=== PATIENT | female | born 1950 | race Caucasian/White ===

== ENCOUNTER 2017-11-03 12:58 | Emergency (ER) | payer MEDICARE ==
--- NOTE | 2017-11-03 14:01 | RAD ---
PA AND LATERAL CHEST RADIOGRAPH: Date: 11-03-17 History: Flu-like symptoms for two days. Cough. Comparison: 08-08-16 FINDINGS: Cardiac silhouette and pulmonary vasculature are within normal limits. There are stable pleural and p arenchymal scarring at the right lung apex and to a lesser degree at the left lung apex. Lungs are ot herwise clear. No focal consolidation or pleural fluid is seen. No other interval change from prior e xam. IMPRESSION: Stable chest without evidence of acute cardiopulmonary process. POS: [facility]
[2017-11-03] MEDS ORDERED: methylPREDNISolone Sod Succ/PF 125 MG/2 ML VIAL ONE (14:08)
[2017-11-03 14:32] LABS: #Basophils 0.1 thou/uL (0.0-0.2); #Eosinphils 0.4 thou/uL (0.0-0.7); #Lymphocytes 1.1 thou/uL (1.20-3.40); #Monocytes 0.8 thou/uL (0.11-0.59); #Neutrophils 8.6 thou/uL (1.40-6.50); %Basophils 0.6 % (0.0-1.0); %Lymphocytes 9.7 % (21.0-51.0); %Monocytes 7.6 % (0.0-10.0); %Neutrophils 78.1 % (42.0-75.0); Hemoglobin 15.7 g/dL (12.0-16.0); Mean Corpuscular HGB CONC 33.4 g/dL (32.0-36.0); Mean Corpuscular Hemoglobin 36.2 pg (27.0-31.0); Mean Platelet Volume 6.8 fL (7.4-10.4); Platelet Count 207 thou/uL (130-400); RBC Distribution Width 12.3 % (11.5-14.5); Red Blood Cell (RBC) Count 4.32 mill/uL (4.20-5.40)
[2017-11-03 14:53] LABS: ALT (SGPT) 17 U/L (8-55); AST (SGOT) 18 U/L (5-34); Albumin 4.1 g/dL (3.4-4.8); Alkaline Phosphatase 89 U/L (40-150); Anion Gap 12 mmol/L (10-20); BUN (Urea Nitrogen) 17 mg/dL (9.8-20.1); Bilirubin, Total 1.2 mg/dL (0.2-1.2); CK (CPK) 104 U/L (29-168); Calc. Creatinine Clearance 0 mL/min (70-130); Calcium 8.9 mg/dL (7.8-10.44); Carbon Dioxide 22 mmol/L (23-31); Chloride 104 mmol/L (98-107); Estimated GFR-MDRD 60; Globulin 3.2 g/dL (2.4-3.5); Glucose 114 mg/dL (80-115); Potassium 4.2 mmol/L (3.5-5.1); Protein, Total 7.3 g/dL (6.0-8.3); Sodium 134 mmol/L (136-145)
[2017-11-03 15:14] LABS: CKMB 1.4 ng/mL (0-6.6); Troponin I Less than 0.010 ng/mL (< 0.028)
--- NOTE | 2017-11-30 15:56 | EKG ---
Test Reason : Blood Pressure : / mmHG Vent. Rate : 088 BPM Atrial Rate : 088 BPM P-R Int : 180 ms QRS Dur : 082 ms QT Int : 396 ms P-R-T Axes : 002 -32 043 degrees QTc Int : 479 ms Normal sinus rhythm Left axis deviation Possible Inferior infarct , age undetermined Abnormal ECG Confirmed by MADHU MOLINA, BAMBI ([id number]), newspaper or periodical editor LANNY HENLEY ([id number] on 11/30/2017 3:56:05 PM Referred By: MYRNA Confirmed By:BAMBI LEUNG MD
== END 2017-11-03 16:42 | disposition home or self-care (01) ==
LOC: ERS 12:58
DX: J44.1 Chronic obstructive pulmonary disease with (acute) exacerbation (principal); J20.9 Acute bronchitis, unspecified; J44.0 Chronic obstructive pulmonary disease with (acute) lower respiratory infection; M81.0 Age-related osteoporosis without current pathological fracture; E78.5 Hyperlipidemia, unspecified; F32.9 Major depressive disorder, single episode, unspecified; Z79.82 Long term (current) use of aspirin; Z79.899 Other long term (current) drug therapy
CPT/HCPCS: 36415; 71046; 80053; 82550; 82553; 83605; 83880; 84484; 85025; 87040; 87804; 93005; 94640; 96374; J2930; J7620

== ENCOUNTER 2018-02-02 17:15 | Inpatient (IN) | payer MEDICARE ==
[2018-02-02] MEDS ORDERED: predniSONE 20 MG TAB ONE ×2 (18:13→18:16)
[2018-02-02 18:21] LABS: Hemoglobin 16.3 g/dL (12.0-16.0); Mean Corpuscular HGB CONC 33.3 g/dL (32.0-36.0); Mean Corpuscular Hemoglobin 36.3 pg (27.0-31.0); Mean Platelet Volume 6.7 fL (7.4-10.4); Platelet Count 291 thou/uL (130-400); RBC Distribution Width 13.2 % (11.5-14.5); Red Blood Cell (RBC) Count 4.49 mill/uL (4.20-5.40); White Blood Cell (WBC) Count 12.4 thou/uL (4.8-10.8)
--- NOTE | 2018-02-02 18:23 | RAD ---
AP VIEW CHEST: Date: 02/02/18 INDICATION: Cough and congestion. COMPARISON: Prior exam dated 04/03/12 and 11/03/17. FINDINGS: Mild cardiomegaly and chronic lung changes are stable. Again seen is an azygos lobe. No pleural effus ion or pneumothorax noted. No acute osseous abnormality is noted. IMPRESSION: No acute change demonstrated when compared to the prior dated 11/03/17. No air space consolidation ev ident. POS: [facility]
[2018-02-02 18:31] LABS: Bilirubin Negative (Negative); Blood, Urine Trace (Negative); Clarity CLEAR (Clear); Glucose, Urine (Dipstick) Negative (Negative); Leukocyte Negative (Negative); Nitrite Negative (Negative); Protein, Urine (Dipstick) Negative (Neg-Trace); Specific Gravity, Urine 1.018 (1.002-1.036); pH, Urine 5.5 (5.0-9.0)
[2018-02-02 18:34] LABS: Bacteria/HPF None Seen HPF (None Seen); Hyaline Casts/LPF 0-3 HYALINE CAST LPF (0-3 Hyaline); RBC/HPF 0-3 HPF (0-3); Squamous Epithelial None Seen HPF (0-3); WBC/HPF 0-3 HPF (0-3)
[2018-02-02 18:38] LABS: #Basophils 0.1 thou/uL (0.0-0.2); #Eosinphils 0.9 thou/uL (0.0-0.7); #Lymphocytes 4.4 thou/uL (1.20-3.40); #Monocytes 1.1 thou/uL (0.11-0.59); #Neutrophils 5.9 thou/uL (1.40-6.50); %Basophils 0.8 % (0.0-1.0); %Eosinophils 7.2 % (0.0-10.0); %Lymphocytes 35.8 % (21.0-51.0); %Monocytes 8.8 % (0.0-10.0); %Neutrophils 47.4 % (42.0-75.0); MDiff Complete? YES; Macrocytosis SLIGHT = 6-15 cells (100X) (0-5/hpf); PLT Morphology Comment Appears Adequate
[2018-02-02 18:47] LABS: ALT (SGPT) 23 U/L (8-55); AST (SGOT) 19 U/L (5-34); Alkaline Phosphatase 97 U/L (40-150); Anion Gap 11 mmol/L (10-20); BUN (Urea Nitrogen) 16 mg/dL (9.8-20.1); Bilirubin, Total 0.9 mg/dL (0.2-1.2); Calc. Creatinine Clearance 0 mL/min (70-130); Calcium 9.2 mg/dL (7.8-10.44); Carbon Dioxide 24 mmol/L (23-31); Chloride 106 mmol/L (98-107); Estimated GFR-MDRD 62; Globulin 3.6 g/dL (2.4-3.5); Glucose 87 mg/dL (80-115); Potassium 4.2 mmol/L (3.5-5.1); Protein, Total 7.6 g/dL (6.0-8.3); Sodium 137 mmol/L (136-145)
[2018-02-02 18:50] LABS: CKMB 2.4 ng/mL (0-6.6); Troponin I Less than 0.010 ng/mL (< 0.028)
[2018-02-02] MEDS ORDERED: cefTRIAXone\\ROCEPHIN 2 GM VIAL ONE (19:37)
[2018-02-02] MEDS ORDERED: hydrALAZINE 20 MG/ML VIAL SLOW IVP PRN (22:04)
[2018-02-02] MEDS ORDERED: Ondansetron HCl/PF 4 MG/2 ML Vial IVP PRN ×2 (22:04)
[2018-02-02] MEDS ORDERED: Nitroglycerin 0.4 MG TAB (25 Tab Bottle) SL PRN (22:04)
[2018-02-02] MEDS ORDERED: Calcium Carbonate 500 MG ChewTAB PO PRN (22:04)
[2018-02-02] MEDS ORDERED: Acetaminophen 325 MG TAB PO PRN (22:04)
[2018-02-02] MEDS ORDERED: Bisacodyl 5 MG TAB PO PRN ×2 (22:04)
[2018-02-02] MEDS ORDERED: HYDROcodone/Acetaminophen 5/325 mg Tablet PO PRN (22:04)
[2018-02-02] MEDS ORDERED: Benzonatate 100 MG CAP PO PRN (22:04)
[2018-02-02] MEDS ORDERED: Loratadine 10 MG TAB PO PRN (22:04)
[2018-02-02] MEDS ORDERED: traMADol HCl 50 MG TAB PO PRN (22:04)
[2018-02-02] MEDS ORDERED: Mag-Al 1200 mg/1200 mg/30 ML UDCUP PO PRN (22:04)
[2018-02-02] MEDS ORDERED: Senokot 8.6 MG TAB PO PRN ×2 (22:04)
[2018-02-02] MEDS ORDERED: Diabetic Tussin 200 MG/10 ML UDCUP PO PRN (22:04)
[2018-02-02] MEDS ORDERED: Lorazepam 1 MG TAB PO PRN (22:04)
[2018-02-02] MEDS ORDERED: cloNIDine 0.1 MG TAB PO PRN (22:04)
[2018-02-03] MEDS ORDERED: cefTRIAXone\\ROCEPHIN 1 GM in Sodium Chloride 0.9% 100 ML IVPB SCH (00:01)
[2018-02-03] MEDS ORDERED: cefTRIAXone\\ROCEPHIN 1 GM in Syringe 10 ML IVPB SCH (00:30)
--- NOTE | 2018-02-03 02:40 | HP ---
DATE OF ADMISSION: 02/02/2018 The patient was seen prior to midnight. PRIMARY CARE PHYSICIAN: Dr. Urrutia. PRIMARY FRONT END TECHNICIAN: Dr. Sabrina Rice. CHIEF COMPLAINT: Worsening shortness of breath. HISTORY OF PRESENTING ILLNESS: Ms. Grey is a pleasant 67-year-old female with past medical histor y of both asthma and COPD as per herself and history of atrial fibrillation, dyslipidemia, who presen eladio to the emergency room with the above-mentioned complaint. History is mainly obtained by the trinity ent herself and electronic medical records have been reviewed. Ms. Grey reports that she started to have symptoms of yellow productive cough and congestion for t he last couple of weeks. She has been using her inhalers without any benefit. She denies any nausea , vomiting, diarrhea, chills, or hemoptysis. She currently is not using any oxygen at home. She did also report generalized weakness and subjective fevers and has hurt herself wheezing. She presented to the ER with these symptoms and her oxygen saturation upon presentation was 90% on room air and ot herwise she was hemodynamically stable. She was found to have diffuse wheezes bilaterally on examina tion. Twelve-lead EKG showed sinus rhythm without any acute changes and chest x-ray does not show an y infiltrate or vascular congestion. She was diagnosed with COPD exacerbation and was given nebulize r, prednisone as well as Rocephin in the emergency room and has been feeling better since then. Her oxygen saturations have improved from 85% on 2 liters nasal cannula to 92% on 4 liters nasal cannula after treatment. She is now being admitted to the hospital for COPD exacerbation and hypoxic respira tory failure. PAST MEDICAL HISTORY: 1. GERD. 2. Degenerative joint disease. 3. Asthma. 4. Chronic obstructive pulmonary disease. PAST SURGICAL HISTORY: Tubal ligation. ALLERGIES: No known medication allergies. PSYCHIATRIC: Anxiety and depression. FAMILY HISTORY: Father from lung cancer. He was a smoker. Mother from diabetes. Patient 's sister had coronary artery disease with stent, hypertension, heart disease, and diabetes runs in s everal family members. SOCIAL HISTORY: She has no history of drug, tobacco, or alcohol abuse. Lives at home with her famil y. CURRENT HOME MEDICATIONS: Sertraline 100 mg daily, ranitidine 150 mg p.o. b.i.d., mirtazapine 15 mg daily at bedtime, metoprolol tartrate 25 mg p.o. b.i.d., Synthroid 50 mcg daily, Neurontin 600 mg p.o . t.i.d., Tambocor 50 mg p.o. b.i.d., atorvastatin 20 mg daily, and amitriptyline 50 mg daily. REVIEW OF SYSTEMS: A 12-point review of systems is done and is negative except for those mentioned i n the history and physical: Constitutional: Weight loss or gain, ability to conduct usual activitie s. Skin: Rash, itching. Eyes: Double vision, pain. ENT/Mouth: Nose bleeding, neck stiffness, pa in, tenderness. Cardiovascular: Palpitations, dyspnea on exertion, orthopnea. Respiratory: Shortn ess of breath, wheezing, cough, hemoptysis, fever, or night sweats. Gastrointestinal: Poor appetite , abdominal pain, heartburn, nausea, vomiting, constipation, or diarrhea. Genitourinary: Urgency, f requency, dysuria, nocturia. Musculoskeletal: Pain, swelling. Neurologic/Psychiatric: Anxiety, de pression. Allergy/Immunologic: Skin rash, bleeding tendency. LABORATORY EXAMINATION: CBC shows WBCs at 12.4 without any left shift, hemoglobin 16.3, platelet of 291. Serum chemistries unremarkable. Cardiac enzymes within normal limits. Urinalysis shows trace blood, otherwise unremarkable. Chest x-ray by my review has no evidence to suggest pleural effusion, edema, or infiltrate. A 12-lead EKG shows normal sinus rhythm without acute changes by my review. PHYSICAL EXAMINATION: VITAL SIGNS: Most recent vital signs temperature 98.6, pulse of 87, respirations 18, saturating 93% on 3 liters nasal cannula, blood pressure 126/71. GENERAL: She appears somewhat uncomfortable and appears pale and sick. Awake, alert, oriented x3. HEENT: Mucous membrane is moist and pink. No oropharyngeal exudate or erythema. Head is normocepha lic, atraumatic. Pupils are equal, reactive to light and accommodation. Extraocular movement intact . NECK: Supple without any lymphadenopathy, JVD, or bruit. CHEST: She has diffused bilateral expiratory wheezes on examination without any significant crackles . Air entry is equal on both sides. HEART: Rate and rhythm is regular without any murmur, rubs, or gallops. ABDOMEN: Soft, nontender, nondistended with positive bowel sounds. EXTREMITIES: Free of any cyanosis, clubbing, or edema. NEUROLOGIC: Nonfocal. SKIN: Free of any rashes or bruises. I feel warm and dry to touch. PSYCHIATRIC: Normal affect. IMPRESSION AND PLAN: 1. Acute hypoxic respiratory failure. This is secondary to acute chronic obstructive pulmonary dise ase exacerbation. She will be continued supplemental oxygen and we will start her on scheduled p.r.n . nebulizers along with empiric IV antibiotics and oral steroids. Likelihood of other causes like ca rdiac event is very less likely. Cardiac enzymes and EKG are unremarkable at this time. We will als o start her on Mucinex b.i.d. as well as long-acting inhaled steroids in the form of Dulera. Continu e with oral steroids at this time as started in the emergency room. Empiric antibiotic for possible bronchitis have also been started in the ER, which we will continue. 2. History of atrial fibrillation. She follows up with Dr. Rice as an outpatient clinic and is curr ently in sinus rhythm. We will continue with her flecainide for now. 3. Hypertension, currently well controlled. We will restart her metoprolol tartrate for now. 4. Dyslipidemia. Restart atorvastatin. 5. Hypothyroidism. We will restart her Synthroid 50 mcg daily. 6. Deep venous thrombosis and gastrointestinal prophylaxis. 7. Add p.r.n. medications. DISPOSITION: Ms. Grey was currently being admitted for acute hypoxic respiratory failure secondar y to acute chronic obstructive pulmonary disease exacerbation. Estimated length of stay is at least 2-3 midnight. Further management will depend upon her clinical course.
[2018-02-03] MEDS: Levothyroxine Sodium 50 MCG TAB PO SCH (05:25)
[2018-02-03 05:33] LABS: #Lymphocytes 1.2 thou/uL (1.20-3.40); #Monocytes 0.1 thou/uL (0.11-0.59); #Neutrophils 8.8 thou/uL (1.40-6.50); %Basophils 0.1 % (0.0-1.0); %Eosinophils 0.1 % (0.0-10.0); %Lymphocytes 11.9 % (21.0-51.0); %Monocytes 1.3 % (0.0-10.0); %Neutrophils 86.6 % (42.0-75.0); Hemoglobin 15.1 g/dL (12.0-16.0); Mean Corpuscular HGB CONC 33.4 g/dL (32.0-36.0); Mean Corpuscular Hemoglobin 36.7 pg (27.0-31.0); Mean Platelet Volume 6.7 fL (7.4-10.4); Platelet Count 262 thou/uL (130-400); RBC Distribution Width 13.1 % (11.5-14.5); Red Blood Cell (RBC) Count 4.11 mill/uL (4.20-5.40); White Blood Cell (WBC) Count 10.2 thou/uL (4.8-10.8)
[2018-02-03 06:00] LABS: Anion Gap 15 mmol/L (10-20); BUN (Urea Nitrogen) 15 mg/dL (9.8-20.1); Calc. Creatinine Clearance 82 mL/min (70-130); Calcium 8.8 mg/dL (7.8-10.44); Carbon Dioxide 19 mmol/L (23-31); Chloride 108 mmol/L (98-107); Estimated GFR-MDRD 67; Glucose 169 mg/dL (80-115); Potassium 4.4 mmol/L (3.5-5.1); Sodium 138 mmol/L (136-145)
[2018-02-03] MEDS: Mometasone/Formoterol 120 PUFF INHALER INH SCH ×2 (06:45→19:48)
[2018-02-03] MEDS: Amitriptyline HCl 25 MG TAB PO SCH (08:53)
[2018-02-03] MEDS: Metoprolol Tartrate 25 MG TAB PO SCH ×2 (08:53→20:36)
[2018-02-03] MEDS: guaiFENesin ER 600 MG TAB PO SCH ×2 (08:53→20:36)
[2018-02-03] MEDS: Atorvastatin Calcium 20 MG TAB PO SCH (08:53)
[2018-02-03] MEDS: Gabapentin 300 MG CAP PO SCH ×3 (08:53→20:36)
[2018-02-03] MEDS: predniSONE 20 MG TAB PO SCH (08:54)
[2018-02-03] MEDS: Flecainide 50 MG TAB PO SCH ×2 (08:54→20:36)
[2018-02-03] MEDS: Famotidine 20 MG TAB PO SCH ×2 (08:54→20:36)
[2018-02-03] MEDS: Enoxaparin Sodium 40 MG/0.4 ML SYRINGE SC SCH (08:54)
[2018-02-03] MEDS ORDERED: Non-Formulary Item 1 EACH (Ranitidine Hcl [Ranitidine Hcl] 150 MG) PO SCH (09:00)
--- NOTE | 2018-02-03 12:17 | PDOC.PN ---
- Subjective Encounter Start Date: 02/03/18 Encounter Start Time: 07:10 -: old records requested/rev Patient seen and examined for copd exacerbation, today she feels little better, has cough. No overnight events - Objective MAR Reviewed: Yes Vital Signs & Weight: Vital Signs (12 hours) Temp Pulse Resp BP Pulse Ox 02/03/18 12:00 97.6 F 81 18 110/73 94 L 02/03/18 08:51 97.4 F L 98 22 H 94 L 02/03/18 08:00 97.4 F L 98 22 H 118/77 94 L 02/03/18 06:42 85 16 95 02/03/18 04:39 97.8 F 85 16 113/61 96 02/03/18 00:30 87 18 93 L I&O: 02/02/18 02/03/18 02/04/18 06:59 06:59 06:59 Intake Total 150 Balance 150 Result Diagrams: 02/03/18 05:16 02/03/18 05:16 Radiology Reviewed by me: Yes (chest xray) EKG Reviewed by me: Yes (nsr) Phys Exam - Physical Examination Constitutional: NAD HEENT: PERRLA, moist MMs, sclera anicteric Neck: no JVD, supple Respiratory: no rales, wheezing present reduced air entry, no accessray muscle in use Cardiovascular: RRR, no significant murmur, no rub Gastrointestinal: soft, non-tender, no distention, positive bowel sounds Musculoskeletal: no edema, pulses present Neurological: non-focal, normal sensation, moves all 4 limbs Lymphatic: no nodes Psychiatric: normal affect, A&O x 3 Skin: no rash, normal turgor Dx/Plan (1) Acute respiratory failure with hypoxia Code(s): J96.01 - ACUTE RESPIRATORY FAILURE WITH HYPOXIA Status: Acute (2) COPD exacerbation Code(s): J44.1 - CHRONIC OBSTRUCTIVE PULMONARY DISEASE W (ACUTE) EXACERBATION Status: Acute (3) Anxiety and depression Code(s): F41.9 - ANXIETY DISORDER, UNSPECIFIED; F32.9 - MAJOR DEPRESSIVE DISORDER, SINGLE EPISODE, UNSPECIFIED Status: Chronic (4) DJD (degenerative joint disease) Code(s): M19.90 - UNSPECIFIED OSTEOARTHRITIS, UNSPECIFIED SITE Status: Chronic (5) Dyslipidemia Code(s): E78.5 - HYPERLIPIDEMIA, UNSPECIFIED Status: Chronic (6) GERD (gastroesophageal reflux disease) Code(s): K21.9 - GASTRO-ESOPHAGEAL REFLUX DISEASE WITHOUT ESOPHAGITIS Status: Chronic (7) Hypertension Code(s): I10 - ESSENTIAL (PRIMARY) HYPERTENSION Status: Chronic (8) Hypothyroidism Code(s): E03.9 - HYPOTHYROIDISM, UNSPECIFIED Status: Chronic (9) Macrocytosis Code(s): D75.89 - OTHER SPECIFIED DISEASES OF BLOOD AND BLOOD-FORMING ORGANS Status: Chronic (10) Obesity (BMI 30.0-34.9) Code(s): E66.9 - OBESITY, UNSPECIFIED Status: Chronic (11) Paroxysmal atrial fibrillation Code(s): I48.0 - PAROXYSMAL ATRIAL FIBRILLATION Status: Chronic - Plan cont current plan of care, continue antibiotics, respiratory therapy * continue rocephin * continue respiratory therapy * DC Tele * transfer to medical * will need to check room air oxygen level * ambulate as tolerated * medication reviewed as below * symptomatic treatment. Review of Systems - Review of Systems Eyes: negative: Pain, Vision Change, Conjunctivae Inflammation, Eyelid Inflammation, Redness, Other ENT: negative: Ear Pain, Ear Discharge, Nose Pain, Nose Discharge, Nose Congestion, Mouth Pain, Mouth Swelling, Throat Pain, Throat Swelling, Other Respiratory: Cough, Shortness of Breath, Wheezing. negative: Dry, Hemoptysis, SOB with Excertion, Pleuritic Pain, Sputum Cardiovascular: negative: chest pain, palpitations, orthopnea, paroxysmal nocturnal dyspnea, edema, light headedness, other Gastrointestinal: negative: Nausea, Vomiting, Abdominal Pain, Diarrhea, Constipation, Melena, Hematochezia, Other Genitourinary: negative: Dysuria, Frequency, Incontinence, Hematuria, Retention , Other Musculoskeletal: negative: Neck Pain, Shoulder Pain, Arm Pain, Back Pain, Hand Pain, Leg Pain, Foot Pain, Other Skin: negative: Rash, Lesions, Eulalio, Bruising, Other - Medications/Allergies Allergies/Adverse Reactions: Allergies Allergy/AdvReac Type Severity Reaction Status Date / Time No Known Drug Allergies Allergy Verified 02/02/18 22:15 Medications: Current Medications Acetaminophen (Tylenol) 650 mg PO Q4H PRN PRN Reason: Headache/Fever or Pain Hydrocodone Bitart/Acetaminophen (Amagon 5/325) 1 tab PO Q4H PRN PRN Reason: Moderate Pain (4-6) Al Hydroxide/Mg Hydroxide (Maalox) 30 ml PO Q6H PRN PRN Reason: Heartburn or Indigestion Albuterol/Ipratropium (Duoneb) 3 ml NEB Q4H PRN PRN Reason: SOB &/or Wheezing Albuterol/Ipratropium (Duoneb) 3 ml NEB I1PN-CA [facility] Last Admin: 02/03/18 06:42 Dose: 3 ml Amitriptyline HCl (Elavil) 50 mg PO DAILY [facility] Last Admin: 02/03/18 08:53 Dose: 50 mg Atorvastatin Calcium (Lipitor) 20 mg PO DAILY [facility] Last Admin: 02/03/18 08:53 Dose: 20 mg Benzonatate (Tessalon) 100 mg PO Q4H PRN PRN Reason: Cough Bisacodyl (Dulcolax) 10 mg PO DAILYPRN PRN PRN Reason: Constipation Calcium Carbonate (Tums) 1,000 mg PO Q4H PRN PRN Reason: Heartburn or Indigestion Clonidine (Catapres) 0.1 mg PO Q4H PRN PRN Reason: Systolic BP > 160 Enoxaparin Sodium (Lovenox) 40 mg SC 0900 [facility] Last Admin: 02/03/18 08:54 Dose: 40 mg Famotidine (Pepcid) 20 mg PO BID [facility] Last Admin: 02/03/18 08:54 Dose: 20 mg Flecainide Acetate (Tambocor) 50 mg PO BID [facility] Last Admin: 02/03/18 08:54 Dose: 50 mg Gabapentin (Neurontin) 600 mg PO TID [facility] Last Admin: 02/03/18 08:53 Dose: 600 mg Guaifenesin (Robitussin Sf) 200 mg PO Q4H PRN PRN Reason: Cough Guaifenesin (Mucinex) 1,200 mg PO Q12HR [facility] Last Admin: 02/03/18 08:53 Dose: 1,200 mg Hydralazine HCl (Apresoline) 10 mg SLOW IVP Q4H PRN PRN Reason: Systolic BP > 170 Ceftriaxone Sodium 1 gm/ (Sodium Chloride) 100 mls @ 200 mls/hr IVPB Q24HR [facility] Levothyroxine Sodium (Synthroid) 50 mcg PO 0600 [facility] Last Admin: 02/03/18 05:25 Dose: 50 mcg Loratadine (Claritin) 10 mg PO DAILYPRN PRN PRN Reason: Sinus Symptoms Lorazepam (Ativan) 1 mg PO Q4H PRN PRN Reason: Anxiety/Agitation Metoprolol Tartrate (Lopressor) 25 mg PO BID [facility] Last Admin: 02/03/18 08:53 Dose: 25 mg Mirtazapine (Remeron) 15 mg PO HS [facility] Mometasone Furoate/Formoterol Fumar (Dulera 200 Mcg/5 Mcg Inhaler) 2 puff INH BID-RT [facility] Last Admin: 02/03/18 06:45 Dose: 2 puff Nitroglycerin (Nitrostat) 0.4 mg SL Q5MIN PRN PRN Reason: Chest Pain Ondansetron HCl (Zofran) 4 mg IVP Q6H PRN PRN Reason: Nausea/Vomiting Prednisone (Prednisone) 40 mg PO QAM-WM [facility] Last Admin: 02/03/18 08:54 Dose: 40 mg Senna (Senokot) 2 tab PO HSPRN PRN PRN Reason: Constipation Sertraline HCl (Zoloft) 100 mg PO DAILY [facility] Last Admin: 02/03/18 08:54 Dose: 100 mg Tramadol HCl (Ultram) 50 mg PO Q4H PRN PRN Reason: Moderate Pain (4-6)
[2018-02-03] MEDS: Mirtazapine 15 MG TAB PO SCH (20:36)
[2018-02-03] MEDS: Zolpidem Tartrate 5 MG TAB PO PRN (21:44)
[2018-02-04] MEDS: cefTRIAXone\\ROCEPHIN 1 GM in Sodium Chloride 0.9% 100 ML IVPB SCH ×2 (00:06→23:55)
[2018-02-04] MEDS: Levothyroxine Sodium 50 MCG TAB PO SCH (05:10)
[2018-02-04] MEDS: Mometasone/Formoterol 120 PUFF INHALER INH SCH ×2 (07:31→18:33)
[2018-02-04] MEDS: Enoxaparin Sodium 40 MG/0.4 ML SYRINGE SC SCH (09:01)
[2018-02-04] MEDS: Gabapentin 300 MG CAP PO SCH ×3 (09:02→20:03)
[2018-02-04] MEDS: guaiFENesin ER 600 MG TAB PO SCH ×2 (09:02→20:03)
[2018-02-04] MEDS: Amitriptyline HCl 25 MG TAB PO SCH (09:02)
[2018-02-04] MEDS: predniSONE 20 MG TAB PO SCH (09:02)
[2018-02-04] MEDS: Famotidine 20 MG TAB PO SCH ×2 (09:02→20:03)
[2018-02-04] MEDS: Atorvastatin Calcium 20 MG TAB PO SCH (09:02)
[2018-02-04] MEDS: Metoprolol Tartrate 25 MG TAB PO SCH ×2 (09:03→20:03)
[2018-02-04] MEDS: Flecainide 50 MG TAB PO SCH ×2 (09:03→20:03)
--- NOTE | 2018-02-04 12:44 | PDOC.PN ---
- Subjective Encounter Start Date: 02/04/18 Encounter Start Time: 08:10 Patient seen and examined for copd exacerbation. still does not feel normal No overnight events - Objective MAR Reviewed: Yes Vital Signs & Weight: Vital Signs (12 hours) Temp Pulse Resp BP Pulse Ox 02/04/18 11:11 97.8 F 76 20 111/77 93 L 02/04/18 08:00 97.5 F L 86 18 91 L 02/04/18 07:29 86 18 91 L 02/04/18 07:25 97.5 F L 79 22 H 135/83 90 L 02/04/18 05:43 97.9 F 76 20 116/75 90 L 02/04/18 01:33 81 18 93 L 02/04/18 00:50 92 L I&O: 02/03/18 02/04/18 02/05/18 06:59 06:59 06:59 Intake Total 150 Balance 150 Result Diagrams: 02/03/18 05:16 02/03/18 05:16 Phys Exam - Physical Examination Constitutional: NAD HEENT: PERRLA, moist MMs, sclera anicteric Neck: no JVD, supple Respiratory: wheezing present reduced air entry Cardiovascular: RRR, no significant murmur, no rub Gastrointestinal: soft, non-tender, no distention, positive bowel sounds Musculoskeletal: no edema, pulses present Neurological: non-focal, normal sensation, moves all 4 limbs Psychiatric: normal affect, A&O x 3 Skin: no rash, normal turgor Dx/Plan (1) Acute respiratory failure with hypoxia Code(s): J96.01 - ACUTE RESPIRATORY FAILURE WITH HYPOXIA Status: Acute (2) COPD exacerbation Code(s): J44.1 - CHRONIC OBSTRUCTIVE PULMONARY DISEASE W (ACUTE) EXACERBATION Status: Acute (3) Anxiety and depression Code(s): F41.9 - ANXIETY DISORDER, UNSPECIFIED; F32.9 - MAJOR DEPRESSIVE DISORDER, SINGLE EPISODE, UNSPECIFIED Status: Chronic (4) DJD (degenerative joint disease) Code(s): M19.90 - UNSPECIFIED OSTEOARTHRITIS, UNSPECIFIED SITE Status: Chronic (5) Dyslipidemia Code(s): E78.5 - HYPERLIPIDEMIA, UNSPECIFIED Status: Chronic (6) GERD (gastroesophageal reflux disease) Code(s): K21.9 - GASTRO-ESOPHAGEAL REFLUX DISEASE WITHOUT ESOPHAGITIS Status: Chronic (7) Hypertension Code(s): I10 - ESSENTIAL (PRIMARY) HYPERTENSION Status: Chronic (8) Hypothyroidism Code(s): E03.9 - HYPOTHYROIDISM, UNSPECIFIED Status: Chronic (9) Macrocytosis Code(s): D75.89 - OTHER SPECIFIED DISEASES OF BLOOD AND BLOOD-FORMING ORGANS Status: Chronic (10) Obesity (BMI 30.0-34.9) Code(s): E66.9 - OBESITY, UNSPECIFIED Status: Chronic (11) Paroxysmal atrial fibrillation Code(s): I48.0 - PAROXYSMAL ATRIAL FIBRILLATION Status: Chronic - Plan cont current plan of care, continue antibiotics, respiratory therapy * still hypoxic * will change prednisone to IV solumedrol * will monitor oxygen level on room air * continue rocephin * continue current optimum medical therapy for copd * medication reviewed as below * symptomatic treatment. Review of Systems - Review of Systems Eyes: negative: Pain, Vision Change, Conjunctivae Inflammation, Eyelid Inflammation, Redness, Other ENT: negative: Ear Pain, Ear Discharge, Nose Pain, Nose Discharge, Nose Congestion, Mouth Pain, Mouth Swelling, Throat Pain, Throat Swelling, Other Respiratory: Cough, Shortness of Breath, SOB with Excertion, Wheezing. negative : Dry, Hemoptysis, Pleuritic Pain, Sputum Cardiovascular: negative: chest pain, palpitations, orthopnea, paroxysmal nocturnal dyspnea, edema, light headedness, other Gastrointestinal: negative: Nausea, Vomiting, Abdominal Pain, Diarrhea, Constipation, Melena, Hematochezia, Other Genitourinary: negative: Dysuria, Frequency, Incontinence, Hematuria, Retention , Other Musculoskeletal: negative: Neck Pain, Shoulder Pain, Arm Pain, Back Pain, Hand Pain, Leg Pain, Foot Pain, Other Skin: negative: Rash, Lesions, Eulalio, Bruising, Other - Medications/Allergies Allergies/Adverse Reactions: Allergies Allergy/AdvReac Type Severity Reaction Status Date / Time No Known Drug Allergies Allergy Verified 02/02/18 22:15 Medications: Current Medications Acetaminophen (Tylenol) 650 mg PO Q4H PRN PRN Reason: Headache/Fever or Pain Hydrocodone Bitart/Acetaminophen ([place] 5/325) 1 tab PO Q4H PRN PRN Reason: Moderate Pain (4-6) Al Hydroxide/Mg Hydroxide (Maalox) 30 ml PO Q6H PRN PRN Reason: Heartburn or Indigestion Albuterol/Ipratropium (Duoneb) 3 ml NEB Q4H PRN PRN Reason: SOB &/or Wheezing Albuterol/Ipratropium (Duoneb) 3 ml NEB [id number] [facility] Last Admin: 02/04/18 07:29 Dose: 3 ml Amitriptyline HCl (Elavil) 50 mg PO DAILY [facility] Last Admin: 02/04/18 09:02 Dose: 50 mg Atorvastatin Calcium (Lipitor) 20 mg PO DAILY [facility] Last Admin: 02/04/18 09:02 Dose: 20 mg Benzonatate (Tessalon) 100 mg PO Q4H PRN PRN Reason: Cough Bisacodyl (Dulcolax) 10 mg PO DAILYPRN PRN PRN Reason: Constipation Calcium Carbonate (Tums) 1,000 mg PO Q4H PRN PRN Reason: Heartburn or Indigestion Clonidine (Catapres) 0.1 mg PO Q4H PRN PRN Reason: Systolic BP > 160 Enoxaparin Sodium (Lovenox) 40 mg SC 0900 [facility] Last Admin: 02/04/18 09:01 Dose: 40 mg Famotidine (Pepcid) 20 mg PO BID [facility] Last Admin: 02/04/18 09:02 Dose: 20 mg Flecainide Acetate (Tambocor) 50 mg PO BID [facility] Last Admin: 02/04/18 09:03 Dose: 50 mg Gabapentin (Neurontin) 600 mg PO TID [facility] Last Admin: 02/04/18 09:02 Dose: 600 mg Guaifenesin (Robitussin Sf) 200 mg PO Q4H PRN PRN Reason: Cough Guaifenesin (Mucinex) 1,200 mg PO Q12HR [facility] Last Admin: 02/04/18 09:02 Dose: 1,200 mg Hydralazine HCl (Apresoline) 10 mg SLOW IVP Q4H PRN PRN Reason: Systolic BP > 170 Ceftriaxone Sodium 1 gm/ (Sodium Chloride) 100 mls @ 200 mls/hr IVPB Q24HR [facility] Last Admin: 02/04/18 00:06 Dose: 100 mls Levothyroxine Sodium (Synthroid) 50 mcg PO 0600 [facility] Last Admin: 02/04/18 05:10 Dose: 50 mcg Loratadine (Claritin) 10 mg PO DAILYPRN PRN PRN Reason: Sinus Symptoms Lorazepam (Ativan) 1 mg PO Q4H PRN PRN Reason: Anxiety/Agitation Methylprednisolone Sodium Succinate (Solu-Medrol) 40 mg IVP Q6HR [facility] Last Admin: 02/04/18 11:57 Dose: 40 mg Metoprolol Tartrate (Lopressor) 25 mg PO BID [facility] Last Admin: 02/04/18 09:03 Dose: 25 mg Mirtazapine (Remeron) 15 mg PO HS [facility] Last Admin: 02/03/18 20:36 Dose: 15 mg Mometasone Furoate/Formoterol Fumar (Dulera 200 Mcg/5 Mcg Inhaler) 2 puff INH BID-RT [facility] Last Admin: 02/04/18 07:31 Dose: 2 puff Nitroglycerin (Nitrostat) 0.4 mg SL Q5MIN PRN PRN Reason: Chest Pain Ondansetron HCl (Zofran) 4 mg IVP Q6H PRN PRN Reason: Nausea/Vomiting Senna (Senokot) 2 tab PO HSPRN PRN PRN Reason: Constipation Sertraline HCl (Zoloft) 100 mg PO DAILY [facility] Last Admin: 02/04/18 09:02 Dose: 100 mg Sodium Chloride (Flush - Normal Saline) 10 ml IVF Q12HR [facility] Sodium Chloride (Flush - Normal Saline) 10 ml IVF PRN PRN PRN Reason: Saline Flush Tramadol HCl (Ultram) 50 mg PO Q4H PRN PRN Reason: Moderate Pain (4-6) Zolpidem Tartrate (Ambien) 5 mg PO HS PRN PRN Reason: .INSOMNIA Last Admin: 02/03/18 21:44 Dose: 5 mg
[2018-02-04] MEDS: Mirtazapine 15 MG TAB PO SCH (20:03)
[2018-02-05] MEDS: Zolpidem Tartrate 5 MG TAB PO PRN
[2018-02-05] MEDS: Levothyroxine Sodium 50 MCG TAB PO SCH (05:35)
[2018-02-05] MEDS: Mometasone/Formoterol 120 PUFF INHALER INH SCH ×2 (06:59→18:37)
[2018-02-05] MEDS: Gabapentin 300 MG CAP PO SCH ×3 (07:54→21:51)
[2018-02-05] MEDS: Metoprolol Tartrate 25 MG TAB PO SCH ×2 (07:54→21:51)
[2018-02-05] MEDS: Famotidine 20 MG TAB PO SCH ×2 (07:55→21:51)
[2018-02-05] MEDS: Atorvastatin Calcium 20 MG TAB PO SCH (07:55)
[2018-02-05] MEDS: guaiFENesin ER 600 MG TAB PO SCH ×2 (07:55→21:52)
[2018-02-05] MEDS: Flecainide 50 MG TAB PO SCH ×2 (07:55→21:51)
[2018-02-05] MEDS: Enoxaparin Sodium 40 MG/0.4 ML SYRINGE SC SCH (07:55)
[2018-02-05] MEDS: Amitriptyline HCl 25 MG TAB PO SCH (07:55)
--- NOTE | 2018-02-05 12:09 | PDOC.PN ---
- Subjective Encounter Start Date: 02/05/18 Encounter Start Time: 08:00 Patient seen and examined for copd exacerbation. No new complaints. No overnight events - Objective MAR Reviewed: Yes Vital Signs & Weight: Vital Signs (12 hours) Temp Pulse Resp BP Pulse Ox 02/05/18 08:00 98.6 F 91 20 02/05/18 07:23 98.6 F 91 20 120/75 91 L 02/05/18 06:56 85 18 91 L I&O: 02/04/18 02/05/18 02/06/18 06:59 06:59 06:59 Intake Total 660 Balance 660 Result Diagrams: 02/03/18 05:16 02/03/18 05:16 Phys Exam - Physical Examination Constitutional: NAD HEENT: PERRLA, moist MMs, sclera anicteric Neck: no JVD, supple Respiratory: no wheezing, no rhonchi reduced air entry Cardiovascular: RRR, no significant murmur, no rub Gastrointestinal: soft, non-tender, no distention, positive bowel sounds Musculoskeletal: no edema, pulses present Neurological: non-focal, normal sensation, moves all 4 limbs Lymphatic: no nodes Psychiatric: normal affect, A&O x 3 Skin: no rash, normal turgor Dx/Plan (1) Acute respiratory failure with hypoxia Code(s): J96.01 - ACUTE RESPIRATORY FAILURE WITH HYPOXIA Status: Acute (2) COPD exacerbation Code(s): J44.1 - CHRONIC OBSTRUCTIVE PULMONARY DISEASE W (ACUTE) EXACERBATION Status: Acute (3) Anxiety and depression Code(s): F41.9 - ANXIETY DISORDER, UNSPECIFIED; F32.9 - MAJOR DEPRESSIVE DISORDER, SINGLE EPISODE, UNSPECIFIED Status: Chronic (4) DJD (degenerative joint disease) Code(s): M19.90 - UNSPECIFIED OSTEOARTHRITIS, UNSPECIFIED SITE Status: Chronic (5) Dyslipidemia Code(s): E78.5 - HYPERLIPIDEMIA, UNSPECIFIED Status: Chronic (6) GERD (gastroesophageal reflux disease) Code(s): K21.9 - GASTRO-ESOPHAGEAL REFLUX DISEASE WITHOUT ESOPHAGITIS Status: Chronic (7) Hypertension Code(s): I10 - ESSENTIAL (PRIMARY) HYPERTENSION Status: Chronic (8) Hypothyroidism Code(s): E03.9 - HYPOTHYROIDISM, UNSPECIFIED Status: Chronic (9) Macrocytosis Code(s): D75.89 - OTHER SPECIFIED DISEASES OF BLOOD AND BLOOD-FORMING ORGANS Status: Chronic (10) Obesity (BMI 30.0-34.9) Code(s): E66.9 - OBESITY, UNSPECIFIED Status: Chronic (11) Paroxysmal atrial fibrillation Code(s): I48.0 - PAROXYSMAL ATRIAL FIBRILLATION Status: Chronic - Plan cont current plan of care, continue antibiotics, respiratory therapy * continue iv solumderol * continue current optimum medical therapy * pt still hypoxic and needs oxygen * will wait till tomorrow, if she still needs oxygen then will arrange home oxygen and consider discharge tomorrow * medication reviewed as below * symptomatic treatment * monitor room air oxygen level. Review of Systems - Review of Systems ENT: negative: Ear Pain, Ear Discharge, Nose Pain, Nose Discharge, Nose Congestion, Mouth Pain, Mouth Swelling, Throat Pain, Throat Swelling, Other Respiratory: negative: Cough, Dry, Shortness of Breath, Hemoptysis, SOB with Excertion, Pleuritic Pain, Sputum, Wheezing Cardiovascular: negative: chest pain, palpitations, orthopnea, paroxysmal nocturnal dyspnea, edema, light headedness, other Gastrointestinal: negative: Nausea, Vomiting, Abdominal Pain, Diarrhea, Constipation, Melena, Hematochezia, Other Genitourinary: negative: Dysuria, Frequency, Incontinence, Hematuria, Retention , Other Musculoskeletal: negative: Neck Pain, Shoulder Pain, Arm Pain, Back Pain, Hand Pain, Leg Pain, Foot Pain, Other Skin: negative: Rash, Lesions, Eulalio, Bruising, Other - Medications/Allergies Allergies/Adverse Reactions: Allergies Allergy/AdvReac Type Severity Reaction Status Date / Time No Known Drug Allergies Allergy Verified 02/02/18 22:15 Medications: Current Medications Acetaminophen (Tylenol) 650 mg PO Q4H PRN PRN Reason: Headache/Fever or Pain Hydrocodone Bitart/Acetaminophen ([place] 5/325) 1 tab PO Q4H PRN PRN Reason: Moderate Pain (4-6) Al Hydroxide/Mg Hydroxide (Maalox) 30 ml PO Q6H PRN PRN Reason: Heartburn or Indigestion Albuterol/Ipratropium (Duoneb) 3 ml NEB Q4H PRN PRN Reason: SOB &/or Wheezing Albuterol/Ipratropium (Duoneb) 3 ml NEB [id number] Last Admin: 02/05/18 06:56 Dose: 3 ml Amitriptyline HCl (Elavil) 50 mg PO DAILY [facility] Last Admin: 02/05/18 07:55 Dose: 50 mg Atorvastatin Calcium (Lipitor) 20 mg PO DAILY [facility] Last Admin: 02/05/18 07:55 Dose: 20 mg Benzonatate (Tessalon) 100 mg PO Q4H PRN PRN Reason: Cough Bisacodyl (Dulcolax) 10 mg PO DAILYPRN PRN PRN Reason: Constipation Calcium Carbonate (Tums) 1,000 mg PO Q4H PRN PRN Reason: Heartburn or Indigestion Clonidine (Catapres) 0.1 mg PO Q4H PRN PRN Reason: Systolic BP > 160 Enoxaparin Sodium (Lovenox) 40 mg SC 0900 [facility] Last Admin: 02/05/18 07:55 Dose: 40 mg Famotidine (Pepcid) 20 mg PO BID [facility] Last Admin: 02/05/18 07:55 Dose: 20 mg Flecainide Acetate (Tambocor) 50 mg PO BID [facility] Last Admin: 02/05/18 07:55 Dose: 50 mg Gabapentin (Neurontin) 600 mg PO TID [facility] Last Admin: 02/05/18 07:54 Dose: 600 mg Guaifenesin (Robitussin Sf) 200 mg PO Q4H PRN PRN Reason: Cough Guaifenesin (Mucinex) 1,200 mg PO Q12HR [facility] Last Admin: 02/05/18 07:55 Dose: 1,200 mg Hydralazine HCl (Apresoline) 10 mg SLOW IVP Q4H PRN PRN Reason: Systolic BP > 170 Ceftriaxone Sodium 1 gm/ (Sodium Chloride) 100 mls @ 200 mls/hr IVPB Q24HR [facility] Last Admin: 02/04/18 23:55 Dose: 100 mls Levothyroxine Sodium (Synthroid) 50 mcg PO 0600 [facility] Last Admin: 02/05/18 05:35 Dose: 50 mcg Loratadine (Claritin) 10 mg PO DAILYPRN PRN PRN Reason: Sinus Symptoms Lorazepam (Ativan) 1 mg PO Q4H PRN PRN Reason: Anxiety/Agitation Methylprednisolone Sodium Succinate (Solu-Medrol) 40 mg IVP Q6HR [facility] Last Admin: 02/05/18 11:21 Dose: 40 mg Metoprolol Tartrate (Lopressor) 25 mg PO BID [facility] Last Admin: 02/05/18 07:54 Dose: 25 mg Mirtazapine (Remeron) 15 mg PO HS [facility] Last Admin: 02/04/18 20:03 Dose: 15 mg Mometasone Furoate/Formoterol Fumar (Dulera 200 Mcg/5 Mcg Inhaler) 2 puff INH BID-RT [facility] Last Admin: 02/05/18 06:59 Dose: 2 puff Nitroglycerin (Nitrostat) 0.4 mg SL Q5MIN PRN PRN Reason: Chest Pain Ondansetron HCl (Zofran) 4 mg IVP Q6H PRN PRN Reason: Nausea/Vomiting Senna (Senokot) 2 tab PO HSPRN PRN PRN Reason: Constipation Sertraline HCl (Zoloft) 100 mg PO DAILY [facility] Last Admin: 02/05/18 07:55 Dose: 100 mg Sodium Chloride (Flush - Normal Saline) 10 ml IVF Q12HR [facility] Last Admin: 02/05/18 07:55 Dose: 10 ml Sodium Chloride (Flush - Normal Saline) 10 ml IVF PRN PRN PRN Reason: Saline Flush Tramadol HCl (Ultram) 50 mg PO Q4H PRN PRN Reason: Moderate Pain (4-6) Zolpidem Tartrate (Ambien) 5 mg PO HS PRN PRN Reason: .INSOMNIA Last Admin: 02/05/18 00:00 Dose: 5 mg
[2018-02-05] MEDS: Mirtazapine 15 MG TAB PO SCH (21:51)
[2018-02-06] MEDS: cefTRIAXone\\ROCEPHIN 1 GM in Sodium Chloride 0.9% 100 ML IVPB SCH (01:56)
[2018-02-06] MEDS: Levothyroxine Sodium 50 MCG TAB PO SCH (05:30)
[2018-02-06] MEDS: Mometasone/Formoterol 120 PUFF INHALER INH SCH (07:05)
[2018-02-06] MEDS: Flecainide 50 MG TAB PO SCH (07:41)
[2018-02-06] MEDS: Atorvastatin Calcium 20 MG TAB PO SCH (07:41)
[2018-02-06] MEDS: Gabapentin 300 MG CAP PO SCH ×2 (07:41→14:28)
[2018-02-06] MEDS: Famotidine 20 MG TAB PO SCH (07:41)
[2018-02-06] MEDS: Amitriptyline HCl 25 MG TAB PO SCH (07:41)
[2018-02-06] MEDS: guaiFENesin ER 600 MG TAB PO SCH (07:42)
[2018-02-06] MEDS: Enoxaparin Sodium 40 MG/0.4 ML SYRINGE SC SCH (07:42)
[2018-02-06] MEDS: Metoprolol Tartrate 25 MG TAB PO SCH (07:42)
[2018-02-06 08:04] VITALS: BP 131/79; TEMP 97.9
--- NOTE | 2018-02-06 11:51 | PDOC.PN ---
- Subjective Encounter Start Date: 02/06/18 Encounter Start Time: 11:48 Patient seen and examined for copd exacerbation, still she gets short of breath and requires oxygen. No overnight events - Objective MAR Reviewed: Yes Vital Signs & Weight: Vital Signs (12 hours) Temp Pulse Resp BP Pulse Ox 02/06/18 08:00 97.9 F 90 18 131/79 89 L 02/06/18 07:07 96 02/06/18 07:05 74 16 96 02/06/18 01:05 82 16 94 L I&O: 02/05/18 02/06/18 02/07/18 06:59 06:59 06:59 Intake Total 660 600 Output Total 1350 Balance 660 -750 Result Diagrams: 02/03/18 05:16 02/03/18 05:16 Phys Exam - Physical Examination Constitutional: NAD HEENT: PERRLA, moist MMs, sclera anicteric Neck: no JVD, supple Respiratory: no wheezing, no rales, no rhonchi reduced air entry both side Cardiovascular: RRR, no significant murmur, no rub Gastrointestinal: soft, non-tender, no distention, positive bowel sounds Musculoskeletal: no edema, pulses present Neurological: non-focal, normal sensation, moves all 4 limbs Psychiatric: normal affect, A&O x 3 Skin: no rash, normal turgor Dx/Plan (1) Acute respiratory failure with hypoxia Code(s): J96.01 - ACUTE RESPIRATORY FAILURE WITH HYPOXIA Status: Acute (2) COPD exacerbation Code(s): J44.1 - CHRONIC OBSTRUCTIVE PULMONARY DISEASE W (ACUTE) EXACERBATION Status: Acute (3) Anxiety and depression Code(s): F41.9 - ANXIETY DISORDER, UNSPECIFIED; F32.9 - MAJOR DEPRESSIVE DISORDER, SINGLE EPISODE, UNSPECIFIED Status: Chronic (4) DJD (degenerative joint disease) Code(s): M19.90 - UNSPECIFIED OSTEOARTHRITIS, UNSPECIFIED SITE Status: Chronic (5) Dyslipidemia Code(s): E78.5 - HYPERLIPIDEMIA, UNSPECIFIED Status: Chronic (6) GERD (gastroesophageal reflux disease) Code(s): K21.9 - GASTRO-ESOPHAGEAL REFLUX DISEASE WITHOUT ESOPHAGITIS Status: Chronic (7) Hypertension Code(s): I10 - ESSENTIAL (PRIMARY) HYPERTENSION Status: Chronic (8) Hypothyroidism Code(s): E03.9 - HYPOTHYROIDISM, UNSPECIFIED Status: Chronic (9) Macrocytosis Code(s): D75.89 - OTHER SPECIFIED DISEASES OF BLOOD AND BLOOD-FORMING ORGANS Status: Chronic (10) Obesity (BMI 30.0-34.9) Code(s): E66.9 - OBESITY, UNSPECIFIED Status: Chronic (11) Paroxysmal atrial fibrillation Code(s): I48.0 - PAROXYSMAL ATRIAL FIBRILLATION Status: Chronic - Plan cont current plan of care, continue antibiotics, social worker school, respiratory therapy * pt will need home oxygen arrangement * she wants to go home but i think she is at risk for readmission * currently on iv solumedrol, iv rocephin and duoneb an dulera therapy * continue current treatment as below * symptomatic treatment * case consultant to arrange home oxygen * if she insist on discharge then will consider discharge. Review of Systems - Review of Systems Constitutional: negative: fever, chills, sweats, weakness, malaise, other Eyes: negative: Pain, Vision Change, Conjunctivae Inflammation, Eyelid Inflammation, Redness, Other ENT: negative: Ear Pain, Ear Discharge, Nose Pain, Nose Discharge, Nose Congestion, Mouth Pain, Mouth Swelling, Throat Pain, Throat Swelling, Other Respiratory: Shortness of Breath, SOB with Excertion. negative: Cough, Dry, Hemoptysis, Pleuritic Pain, Sputum, Wheezing Cardiovascular: negative: chest pain, palpitations, orthopnea, paroxysmal nocturnal dyspnea, edema, light headedness, other Gastrointestinal: negative: Nausea, Vomiting, Abdominal Pain, Diarrhea, Constipation, Melena, Hematochezia, Other Genitourinary: negative: Dysuria, Frequency, Incontinence, Hematuria, Retention , Other Musculoskeletal: negative: Neck Pain, Shoulder Pain, Arm Pain, Back Pain, Hand Pain, Leg Pain, Foot Pain, Other Skin: negative: Rash, Lesions, Eulalio, Bruising, Other - Medications/Allergies Allergies/Adverse Reactions: Allergies Allergy/AdvReac Type Severity Reaction Status Date / Time No Known Drug Allergies Allergy Verified 02/02/18 22:15 Medications: Current Medications Acetaminophen (Tylenol) 650 mg PO Q4H PRN PRN Reason: Headache/Fever or Pain Hydrocodone Bitart/Acetaminophen ([place] 5/325) 1 tab PO Q4H PRN PRN Reason: Moderate Pain (4-6) Al Hydroxide/Mg Hydroxide (Maalox) 30 ml PO Q6H PRN PRN Reason: Heartburn or Indigestion Albuterol/Ipratropium (Duoneb) 3 ml NEB Q4H PRN PRN Reason: SOB &/or Wheezing Albuterol/Ipratropium (Duoneb) 3 ml NEB [id number] [facility] Last Admin: 02/06/18 07:05 Dose: 3 ml Amitriptyline HCl (Elavil) 50 mg PO DAILY [facility] Last Admin: 02/06/18 07:41 Dose: 50 mg Atorvastatin Calcium (Lipitor) 20 mg PO DAILY [facility] Last Admin: 02/06/18 07:41 Dose: 20 mg Benzonatate (Tessalon) 100 mg PO Q4H PRN PRN Reason: Cough Bisacodyl (Dulcolax) 10 mg PO DAILYPRN PRN PRN Reason: Constipation Calcium Carbonate (Tums) 1,000 mg PO Q4H PRN PRN Reason: Heartburn or Indigestion Clonidine (Catapres) 0.1 mg PO Q4H PRN PRN Reason: Systolic BP > 160 Enoxaparin Sodium (Lovenox) 40 mg SC 0900 [facility] Last Admin: 02/06/18 07:42 Dose: Not Given Famotidine (Pepcid) 20 mg PO BID [facility] Last Admin: 02/06/18 07:41 Dose: 20 mg Flecainide Acetate (Tambocor) 50 mg PO BID [facility] Last Admin: 02/06/18 07:41 Dose: 50 mg Gabapentin (Neurontin) 600 mg PO TID [facility] Last Admin: 02/06/18 07:41 Dose: 600 mg Guaifenesin (Robitussin Sf) 200 mg PO Q4H PRN PRN Reason: Cough Guaifenesin (Mucinex) 1,200 mg PO Q12HR [facility] Last Admin: 02/06/18 07:42 Dose: 1,200 mg Hydralazine HCl (Apresoline) 10 mg SLOW IVP Q4H PRN PRN Reason: Systolic BP > 170 Ceftriaxone Sodium 1 gm/ (Sodium Chloride) 100 mls @ 200 mls/hr IVPB Q24HR [facility] Last Admin: 02/06/18 01:56 Dose: 100 mls Levothyroxine Sodium (Synthroid) 50 mcg PO 0600 [facility] Last Admin: 05/17/18 05:30 Dose: 50 mcg Loratadine (Claritin) 10 mg PO DAILYPRN PRN PRN Reason: Sinus Symptoms Lorazepam (Ativan) 1 mg PO Q4H PRN PRN Reason: Anxiety/Agitation Methylprednisolone Sodium Succinate (Solu-Medrol) 40 mg IVP Q6HR [facility] Last Admin: 02/06/18 05:30 Dose: 40 mg Metoprolol Tartrate (Lopressor) 25 mg PO BID [facility] Last Admin: 02/06/18 07:42 Dose: 25 mg Mirtazapine (Remeron) 15 mg PO HS [facility] Last Admin: 02/05/18 21:51 Dose: 15 mg Mometasone Furoate/Formoterol Fumar (Dulera 200 Mcg/5 Mcg Inhaler) 2 puff INH BID-RT [facility] Last Admin: 02/06/18 07:05 Dose: 2 puff Nitroglycerin (Nitrostat) 0.4 mg SL Q5MIN PRN PRN Reason: Chest Pain Ondansetron HCl (Zofran) 4 mg IVP Q6H PRN PRN Reason: Nausea/Vomiting Senna (Senokot) 2 tab PO HSPRN PRN PRN Reason: Constipation Sertraline HCl (Zoloft) 100 mg PO DAILY [facility] Last Admin: 02/06/18 07:41 Dose: 100 mg Sodium Chloride (Flush - Normal Saline) 10 ml IVF Q12HR [facility] Last Admin: 02/06/18 07:42 Dose: 10 ml Sodium Chloride (Flush - Normal Saline) 10 ml IVF PRN PRN PRN Reason: Saline Flush Tramadol HCl (Ultram) 50 mg PO Q4H PRN PRN Reason: Moderate Pain (4-6) Zolpidem Tartrate (Ambien) 5 mg PO HS PRN PRN Reason: .INSOMNIA Last Admin: 02/05/18 00:00 Dose: 5 mg
--- NOTE | 2018-02-06 12:21 | DIS ---
DATE OF ADMISSION: 02/02/2018 DATE OF DISCHARGE: 02/06/2018 PRIMARY CARE PHYSICIAN: Ciarra Urrutia M.D. DISCHARGE DISPOSITION: Home with home oxygen. PRIMARY DISCHARGE DIAGNOSES: Acute respiratory failure with hypoxia, chronic obstructive pulmonary d isease exacerbation. SECONDARY DISCHARGE DIAGNOSES: Paroxysmal atrial fibrillation, obesity with body mass index 30, macr ocytosis, hypothyroidism, hypertension, gastroesophageal reflux disease, dyslipidemia, degenerative j oint disease, anxiety and depression. PRIMARY PROCEDURE/OPERATION: None. RADIOLOGICAL INVESTIGATION: Chest x-ray showed COPD changes. SIGNIFICANT LABORATORY DATA: WBC 10.2, hemoglobin 15.1, platelet 262. Sodium 138, potassium 4.4, BU N 15, creatinine 0.85, calcium 8.8. LFT normal. Cardiac enzymes negative. Urinalysis unremarkable. Blood culture and urine culture negative. DISCHARGE MEDICATIONS: Amitriptyline 50 mg p.o. daily, Lipitor 20 mg p.o. daily, Omnicef 300 mg p.o. b.i.d. for 5 more days, Tambocor 50 mg p.o. b.i.d., Neurontin 600 mg p.o. t.i.d., Mucinex 600 mg twi ce daily for 7 days, Synthroid 50 mcg p.o. daily, metoprolol tartrate 25 mg p.o. b.i.d., Remeron 15 m g p.o. at bedtime, Dulera 2 puffs inhalation b.i.d., prednisone 40 mg p.o. daily for 7 days, ranitidi ne 150 mg p.o. b.i.d., Zoloft 100 mg p.o. daily, Ventolin HFA 2 puffs q.6 hourly p.r.n. CONTRAINDICATIONS: None. CODE STATUS: FULL CODE. INPATIENT CONSULTANTS: None. ALLERGIES: No known drug allergy. DISCHARGE PLAN: Post hospital, patient will follow up with primary care physician. The patient will follow up with the director of patient safety as an outpatient basis. HOSPITAL COURSE: A 67-year-old female who was admitted by Dr. Diana Guthrie. Please see her H&P for further details. The patient was admitted for COPD exacerbation. On admission, she was hypoxic. S he was consistent with acute hypoxic respiratory failure. While in hospital, initially she was admit eladio to telemetry floor. She was treated with prednisone, DuoNeb, and Dulera therapy. Rocephin was g iven as well as Mucinex was also given. Subsequently, patient was transferred to medical floor as emmie babcock was persistently hypoxic and that is why we changed prednisone to Solu-Medrol and continued agg ressive respiratory therapy. The patient did not improve her condition and she was still requiring oxygen and that is why with [employer], we are arranging home oxygen for her. We are changing antibiotic to Omnicef and changing prednisone for another 7 days. All new medication prescription given to her pharmacy. Patient is seen and examined at bedside today. Please see my progress note from today for further de tail.
--- NOTE | 2018-02-08 14:36 | EKG ---
Test Reason : Blood Pressure : / mmHG Vent. Rate : 088 BPM Atrial Rate : 088 BPM P-R Int : 154 ms QRS Dur : 078 ms QT Int : 386 ms P-R-T Axes : -10 172 006 degrees QTc Int : 467 ms Normal sinus rhythm Right axis deviation Low voltage QRS Cannot rule out Anterior infarct , age undetermined Abnormal ECG Confirmed by BIRGIT RUSSELL M.D. ([id number]), department editor ZAYDA KIM ([id number]) on 02/08/2018 2:36:30 PM Referred By: Confirmed By:BIRGIT RUSSELL M.D.
== END 2018-02-06 15:27 | disposition home or self-care (01) | DRG 189 ==
LOC: ERS 17:15 → 2SE 21:42 → T4-A 02-03 14:55
PROVIDERS: ADMIT Internal Medicine; ATTEND Internal Medicine
DX: J96.01 Acute respiratory failure with hypoxia (principal); J44.1 Chronic obstructive pulmonary disease with (acute) exacerbation; I48.0 Paroxysmal atrial fibrillation; I10 Essential (primary) hypertension; E78.5 Hyperlipidemia, unspecified; E03.9 Hypothyroidism, unspecified; K21.9 Gastro-esophageal reflux disease without esophagitis; J45.909 Unspecified asthma, uncomplicated; E66.9 Obesity, unspecified; Z68.30 Body mass index [BMI] 30.0-30.9, adult; F32.9 Major depressive disorder, single episode, unspecified; F41.9 Anxiety disorder, unspecified; D75.89 Other specified diseases of blood and blood-forming organs
CPT/HCPCS: 36415; 71045; 80048; 80053; 81003; 81015; 82553; 83605; 84484; 85025; 87040; 87086; 93005; 94640; 94664; 96361; 96365; A4216; J0696; J1650; J2920; J7050; J7506; J7620